=== PATIENT | female | born 1995 | race Caucasian/White ===

== ENCOUNTER 2022-11-19 13:54 | Emergency (ER) | payer OTHER ==
[~2022-11-19] VITALS: Ht 162.6 cm; Wt 79.5 kg
[2022-11-19] MEDS ORDERED: HYDROcodone-ACET 10/325MG TAB PO ONE (14:30)
[2022-11-19] MEDS ORDERED: HYDR-4902 PO (15:08)
[2022-11-19] MEDS ORDERED: IBUP800T26 PO (15:08)
[2022-11-19 15:37] VITALS: BP 123/83
== END 2022-11-19 16:24 | disposition home or self-care (01) ==
LOC: ER 13:54
DX: S93.401A Sprain of unspecified ligament of right ankle, initial encounter (principal); X50.1XXA Overexertion from prolonged static or awkward postures, initial encounter; Y93.89 Activity, other specified; Y92.89 Other specified places as the place of occurrence of the external cause; Y99.8 Other external cause status
CPT/HCPCS: 73610